=== PATIENT | male | born 1960 | race Two or more races ===

== ENCOUNTER 2022-03-13 20:14 | Emergency (ER) | payer OTHER ==
[~2022-03-13] VITALS: Ht 172.7 cm; Wt 83.9 kg
[2022-03-13 21:14] LABS: HEMATOCRIT 43.5 % (36.7-47.1); MEAN CORPUSCULAR HEMOGLOBIN 29.7 uug (23.8-33.4); MEAN CORPUSCULAR VOLUME 84.8 fL (73.0-96.2); PLATELET COUNT (AUTO) 207 K/uL (152-348)
[2022-03-13 21:17] LABS: ETHANOL < 3 MG/DL (0-0)
[2022-03-13 21:32] LABS: CARBON DIOXIDE 25 mmol/L (21-32); CHLORIDE 103 mmol/L (98-107); CREATININE 0.8 mg/dL (0.6-1.3); GLUCOSE 155 mg/dL (74-106); POTASSIUM 3.6 mmol/L (3.5-5.1); UREA NITROGEN, BLOOD 10 mg/dL (7-18)
[2022-03-13 21:41] LABS: ALANINE AMINOTRANSFERASE 53 U/L (16-63); ALKALINE PHOSPHATASE 69 U/L (50-136); ASPARTATE AMINOTRANSFERASE 39 U/L (15-37); BILIRUBIN,DIRECT 0.3 mg/dL (0.0-0.2); BILIRUBIN,TOTAL 1.2 mg/dL (0.2-1.0); TOTAL PROTEIN, SERUM 7.6 g/dL (6.4-8.2)
[2022-03-13 21:59] LABS: *BILIRUBIN,URIN NEGATIVE (NEGATIVE); *CLARITY,URINE CLEAR (CLEAR); *COLOR,URINE YELLOW (YELLOW); *KETONES,URINE NEGATIVE (NEGATIVE); LEUKOCYTE ESTERASE ,URINE NEGATIVE (NEGATIVE); NITRITE, URINE NEGATIVE (NEGATIVE); UGLUCOSE NEGATIVE (NEGATIVE)
--- NOTE | 2022-03-13 22:00 | NUR ---
Patient laying on with no distress noted.
[2022-03-13 22:01] LABS: *BLOOD, URINE TRACE (NEGATIVE)
[2022-03-13 22:09] LABS: BACTERIA,URINE FEW /HPF (NONE SEEN); RBC,URINE 0-3 /HPF (0-3); SQUAMOUS EPITHELIAL CELL,UR FEW /HPF (NONE SEEN)
[2022-03-13 22:33] LABS: *AMPHETAMINE, URINE NEGATIVE (NEGATIVE); *CANNABINOID, URINE NEGATIVE (NEGATIVE); *COCCAINE, URINE NEGATIVE (NEGATIVE); *OPIATE, URINE NEGATIVE (NEGATIVE); *PHENCYCLIDINE SCREEN,URINE NEGATIVE (NEGATIVE)
[2022-03-13] MEDS ORDERED: ASPIRIN 81 MG TAB.CHEW PO ONE (23:00)
[2022-03-13] MEDS ORDERED: ASPIRIN 81 MG TAB.CHEW ONE (23:05)
[2022-03-14] MEDS ORDERED: SWABABLE VALVE TRANSFER SET EA MC ONE (01:20)
[2022-03-14] MEDS ORDERED: IOHEXOL 350 100 ML INFUS..BTL ONE (01:21)
[2022-03-14] MEDS ORDERED: IV NORMAL SALINE 250 ML IV ONE (01:21)
--- NOTE | 2022-03-14 04:23 | NUR ---
Patient sleeping with no distress noted.
--- NOTE | 2022-03-14 07:22 | NUR ---
Anyi from [facility] called back with transfer info. Patient will be going to [facility], call for report is . Landon Townsend is accepting MD. [facility] ambulance ETA is [id number].
--- NOTE | 2022-03-14 07:53 | NUR ---
Gave SBAR report to ISABEL charge nurse from [facility].
--- NOTE | 2022-03-14 08:57 | NUR ---
Gave SBAR report [facility] [id number].
== END 2022-03-14 09:02 | disposition short-term general hospital (02) ==
LOC: ER 20:14
DX: R55 Syncope and collapse (principal); J98.11 Atelectasis; Z20.822 Contact with and (suspected) exposure to COVID-19; I11.9 Hypertensive heart disease without heart failure; R00.0 Tachycardia, unspecified
CPT/HCPCS: 80076; 80048; 81001; 85025; 85379; 85730; 87426; 87040 ×2; 87186; 87086; 87077; 84484 ×2; 36415; 93005; 71045; 70450; 99291; 83605 ×2; 80320; 80307; 71275; Q9967; A4663; G0480